=== PATIENT | female | born 1985 | race Caucasian/White ===

== ENCOUNTER 2016-12-07 09:20 | Emergency (ER) | payer OTHER ==
[2016-12-07 09:27] VITALS: BP 109/51; PULSE 100; RESP 16; TEMP 97.3; O2SAT 95
--- NOTE | 2016-12-07 09:46 | EDPHY ---
HPI/HX/ROS/PE/MDM Narrative: CHIEF COMPLAINT: Left knee pain HPI: The patient is a 31 y/o female, with a history of an ACL repair surgery 4.5 months ago, complaining of left knee pain secondary to fall while hiking yesterday. As she fell her distal left leg twisted medially and she struck her left castellano on a rock. Her pain is noticeable during walking and mild in severity. Pain is localized primarily to the anterolateral side of her left knee as well as over a bruise on her left castellano. She denies stiffness and is able to bend her knee up to her chest and bear weight. She is concerned she re- tore the ACL graft from 4.5 months ago. REVIEW OF SYSTEMS: Aside from elements discussed in the HPI, a comprehensive 10-point review of systems was reviewed and is negative. PMH: [facility] repair with graft 07/2016 at [facility], chronic ulcerative colitis not on biologics SOCIAL HISTORY: Nonsmoker. grad student. PHYSICAL EXAM: General:Patient is alert, in no acute distress. Skin: Normal color. No rash. Warm and dry. Ecchymosis to left castellano. Well- healed laparoscopic scars around left knee. Extremities: Normal appearance. Full range of motion. Left knee: no laxity to valgus and varus stress. Negative anterior drawer test. Neuro: Oriented x3. Normal motor function. Normal sensory function. ED Course: This is a 31 y/o female with history of left ACL repair 4.5months ago presenting with left knee pain secondary to a fall yesterday. On exam, her knee is stable to manipulation with no point tenderness over her knee. ROM intact. Normal neurovascular exam. Ecchymosis noted to left castellano. We discussed imaging options in the ED. Patient spoke with her [facility] and has decided to get an outpatient MRI through him. She has an appointment scheduled to follow up with him this week. She will be discharged with general knee sprain instructions and return precautions. She is comfortable with this plan. MDM: This patient presents with knee injury. She is declining an MRI at this time and will follow-up with her orthopedist tomorrow. General Time Seen by Provider: 12/07/16 09:30 Initial Vital Signs: Initial Vital Signs Temperature (C) 36.3 C 12/07/16 09:24 Heart Rate 100 12/07/16 09:24 Respiratory Rate 16 12/07/16 09:24 Blood Pressure 109/51 L 12/07/16 09:24 O2 Sat (%) 95 12/07/16 09:24 O2 Delivery Mode Room Air Allergies/Adverse Reactions: No Known Allergies Allergy (Unverified 12/07/16 09:28) Home Medications: Medication Instructions Recorded Mesalamine [Apriso 0.375 gm] 1.5 gm PO DAILY 07/30/16 Sertraline HCl [Zoloft 50mg (*)] 50 mg PO HS 07/30/16 azaTHIOprine [Imuran 50 mg (*)] 100 mg PO DAILY 07/30/16 Departure - Departure Disposition: Home, Routine, Self-Care Clinical Impression: Left knee pain Condition: Good Instructions: Knee Pain (ED) Additional Instructions: 1. Rest. Apply ice to sore areas. Elevate when possible. Wear brace until instructed otherwise by your surgeon. 2. Take 600mg ibuprofen every 6-8 hours for inflammation and pain. 3. Follow up with your surgeon as planned. 4. Return to the ED for severe pain, dramatic increase in swelling, weakness or numbness in your leg, or other worsening of condition. Report Scribed for: Shan Chris Report Scribed by: Antonella Lala Date of Report: 12/07/16 Time of Report: 09:33 Physician Review and Approval Statement: Portions of this note were transcribed by an ED scribe. I personally performed the history, physical exam, and medical decision making; and confirm the accuracy of the information in the transcribed note.
== END 2016-12-07 10:09 | disposition home or self-care (01) ==
DX: S89.92XA Unspecified injury of left lower leg, initial encounter (principal); W18.09XA Striking against other object with subsequent fall, initial encounter; Y92.89 Other specified places as the place of occurrence of the external cause; Y99.8 Other external cause status; Y93.01 Activity, walking, marching and hiking